=== PATIENT | male | born 1975 | race Caucasian/White ===

== ENCOUNTER 2016-05-03 18:53 | Emergency (ER) | payer OTHER ==
[2016-05-03 20:34] LABS: BASO % 0.3 % (0.0-2.0); EOS % 0.8 % (0.0-4.0); HEMATOCRIT 44.2 % (35.0-51.0); LYMPH # 1.9 K/uL (1.0-4.3); LYMPH % 32.9 % (20.0-40.0); MEAN CELL VOLUME 88.4 fL (80.0-94.0); MEAN CORPUSCULAR HEMOGLOBIN 28.9 pg (27.0-31.0); MEAN CORPUSCULAR HGB CONC 32.7 g/dL (33.0-37.0); MEAN PLATELET VOLUME 7.7 fL (7.2-11.7); MONO # 0.5 K/uL (0.0-0.8); MONO % 8.4 % (0.0-10.0); RED CELL DISTRIBUTION WIDTH 12.9 % (11.5-14.5); WHITE BLOOD COUNT 5.7 K/uL (4.8-10.8)
[2016-05-03 20:38] LABS: URINE BILIRUBIN NEGATIVE (NEGATIVE); URINE BLOOD NEGATIVE (NEGATIVE); URINE COLOR Yellow (YELLOW); URINE GLUCOSE (UA) NORMAL (Normal); URINE KETONE NEGATIVE (NEGATIVE); URINE LEUKOCYTE ESTERASE NEG Leu/uL (Negative); URINE PROTEIN NEGATIVE (NEGATIVE); URINE UROBILINOGEN NORMAL mg/dL (0.2-1.0)
[2016-05-03 20:39] LABS: CHLORIDE 97 mmol/L (98-107); POTASSIUM 3.7 mmol/L (3.6-5.2); SODIUM 139 mmol/L (132-148)
[2016-05-03 20:41] LABS: BILIRUBIN,TOTAL 0.3 mg/dL (0.2-1.3); GFR AFRICAN-AMERICAN > 60
[2016-05-03 20:42] LABS: ALB/GLOB RATIO 1.6 (1.0-2.1); ALKALINE PHOSPHATASE 98 U/L (38-126); ALT/SGPT 33 U/L (21-72); AST/SGOT 29 U/L (17-59); BLOOD UREA NITROGEN 13 mg/dL (9-20); CALCIUM 8.9 mg/dl (8.6-10.4); CARBON DIOXIDE 29 mmol/L (22-30); GLUCOSE,RANDOM 110 mg/dL (75-110); TOTAL PROTEIN 6.7 g/dL (6.3-8.3)
[2016-05-03 20:43] LABS: ALCOHOL SERUM < 10 mg/dl (0-10)
--- NOTE | 2016-05-04 03:53 | C.PDOC ---
Time Seen by Provider: 05/03/16 19:56 Chief Complaint (Nursing): Psychiatric Evaluation History Per: Patient History/Exam Limitations: clinical condition Onset/Duration Of Symptoms: Unknown Current Symptoms Are (Timing): Still Present Modifying Factor(s): None Severity: Moderate Associated Symptoms: Paranoia Additional History Per: Prior Records Past Medical History Reviewed: Historical Data, Nursing Documentation, Vital Signs Vital Signs: Last Vital Signs Temp 97.2 F L 05/04/16 06:18 Pulse 55 L 05/04/16 06:18 Resp 16 05/04/16 06:18 BP 105/62 05/04/16 06:18 Pulse Ox 98 05/04/16 06:18 - Medical History PMH: Schizophrenia (Paranoid) Family History: States: Unknown Family Hx - Social History Hx Tobacco Use: No Hx Alcohol Use: No Hx Substance Use: No - Immunization History Hx Tetanus Toxoid Vaccination: No Hx Influenza Vaccination: No Hx Pneumococcal Vaccination: No Review Of Systems Review Of Systems: ROS cannot be obtained secondary to pt's inabilty to answer questions. Physical Exam - Physical Exam Appears: Other (Pt is not answering questions appropriately. He points to his head. ) Skin: Normal Color, Warm, Dry, No Rash Head: Atraumatic, Normacephalic Eye(s): bilateral: PERRL Neck: Normal ROM, No Midline Cervical Tenderness, No Step Off Deformity, Supple Chest: Symmetrical, No Deformity Cardiovascular: Rhythm Regular Respiratory: Normal Breath Sounds, No Accessory Muscle Use Gastrointestinal/Abdominal: Soft, No Tenderness Back: No CVA Tenderness Extremity: Normal ROM, No Deformity Neurological/Psych: Inappropriate Response To Command, Other (Moving all extremities) ED Course And Treatment - Laboratory Results Result Diagrams: 05/03/16 20:28 05/03/16 20:28 Lab Interpretation: No Acute Changes ECG: Interpreted By Me, Viewed By Me ECG Rhythm: Sinus Bradycardia ECG Interpretation: No Acute Changes Rate From EC O2 Sat by Pulse Oximetry: 100 Pulse Ox Interpretation: Normal - Radiology CXR: Interpreted by Me, Viewed By Me CXR Interpretation: Yes: No Acute Disease - CT Scan/US CT head Other Rad Studies (CT/US): Read By Radiologist, Radiology Report Reviewed CT/US Interpretation: No CT evidence of acute intracranial abnormality. Progress Note: Pt is medically stable for psychiatric evaluation and/or admission. Disposition - Disposition Disposition Time: 07:00 Condition: STABLE - Clinical Impression Clinical Impression: Psychosis Physician Patient Turnover Patient Signed Over To: Erwin Montenegro Handoff Comments: to f/up psychiatric screening evaluation by [facility].
--- NOTE | 2016-05-04 08:38 | CT ---
PROCEDURE: CT HEAD WITHOUT CONTRAST. HISTORY: psych pt c/o about head. Headache? Pt not talking. COMPARISON: 11/06/2015 TECHNIQUE: Axial computed tomography images were obtained through the head/brain without intravenous contrast. Radiation dose: Total exam DLP = 9457.49 MGy-cm. FINDINGS: HEMORRHAGE: No intracranial hemorrhage. BRAIN: No mass effect or edema. No CT evidence of acute territorial infarct. No atrophy or chronic microvascular ischemic changes. VENTRICLES: Unremarkable. No hydrocephalus. Stable asymmetry. CALVARIUM: Unremarkable. PARANASAL SINUSES: Unremarkable as visualized. No significant inflammatory changes. MASTOID AIR CELLS: Unremarkable as visualized. No inflammatory changes. OTHER FINDINGS: None. IMPRESSION: No CT evidence of acute intracranial hemorrhage or acute territorial infarct. Acute infarction may be CT occult within first 24 hours. If a focal deficit persists, consider followup CT or MRI for further evaluation. Please note that this report is in general agreement with the preliminary report provided by Eleanor.
--- NOTE | 2016-05-04 09:01 | RAD ---
HISTORY: psych COMPARISON: 11/18/2015. FINDINGS: LUNGS: No active pulmonary disease. PLEURA: No significant pleural effusion identified, no pneumothorax apparent. CARDIOVASCULAR: Normal. OSSEOUS STRUCTURES: No significant abnormalities. VISUALIZED UPPER ABDOMEN: Normal. OTHER FINDINGS: None. IMPRESSION: No active disease.
--- NOTE | 2016-05-04 16:23 | PCM.PSYCH ---
Initial Psychiatric Evaluation - Initial Psychiatric Evaluation Type of Admission: Involuntary Legal Status: Capacity Chief Complaint (in patient's own words): i am crystal History of Present Illness and Precipitating Events: This is a 41 years old male, who lives with his mother and works at [employer] , came to the ED with auditory hallucinations, and disorganized behavior. As per the staff, patient was very disorganized and internally preoccupied. Patient was delusional, paranoid, psychotic and bizarre. He requested that he has headaches and he wants xray of his head, that's why he came to the hospital. During evaluation patient remains superficially cooperative but guarded about the details. He is a poor historian. Patient remains guarded, delusional, and internally preoccupied. He starts looking around suspiciously and at times starts smiling without any stimulus Spoke with the mother, Ms Li. As per the mother patient has a long history of schizophrenia and he was [place] [facility]. He stopped his medications almost 6 months ago and since then he is becoming increasingly disorganized and internally preoccupied. As per her, he is not eating, he is not drinking and he does not take care of his ADLs. He confines himself to his room, starts responding to internal stimuli and he starts talking to himself and laughing by himself. As per the mother, he is not suicidal and is not homicidal. But he needs to stay in the hospital to get treatment. Past medical history None reported Current Medications: Active Medications Generic Name Dose Route Start Last Admin Trade Name Freq PRN Reason Stop Dose Admin Benztropine Mesylate 1 mg 05/04/16 12:13 Cogentin IM Q6 PRN Allergy symptoms Benztropine Mesylate 2 mg 05/04/16 12:12 Cogentin PO Q6 PRN Extra Pyramidal Symptoms Clonazepam 1 mg 05/04/16 18:00 Klonopin PO BID SUDHEER Diphenhydramine HCl 50 mg 05/04/16 12:12 Benadryl PO Q6 PRN Extra Pyramidal Symptoms Haloperidol 5 mg 05/04/16 12:13 Haldol PO Q6 PRN Agitation Haloperidol Lactate 5 mg 05/04/16 12:12 Haldol IM Q8 PRN Moderate Agitation Lorazepam 1 mg 05/04/16 12:12 Ativan PO Q6 PRN Anxiety Past Psychiatric History - Past Psychiatric History Previous Treatment History: Inpatient Pertinent Medical Hx (Current Medical&Sleep Prob, Allergies): Allergies Allergy/AdvReac Type Severity Reaction Status Date / Time No Known Allergies Allergy Verified 11/18/15 19:28 Oxcarbazepine [Trileptal] 150 mg PO BID 05/28/13 traZODone [Desyrel] 50 mg PO DAILY 05/28/13 Benztropine [Benztropine Mesylate] 1 mg PO 11/06/15 risperiDONE [RisperDAL] 3 mg PO HS 11/18/15 Review of Systems - Review of Systems All systems: reviewed and no additional remarkable complaints except - Psychiatric Psychiatric: Anxiety, Hallucinations, Paranoia Mental Status Examination - Personal Presentation Personal Presentation: Looks stated age - Affect Affect: Constricted - Reliability in Providing Information Reliability in Providing Information: Poor, due to alteration in thoughts - Speech Speech: Disorganized - Mood Mood: Anxious - Formal Thought Process Formal Thought Process: Hallucinations, Delusions, Paranoia, Loosening of associations - Hallucinations/Delusions Hallucinations: Auditory Delusions: Persecution - Obsessions/Compulsions Obsessions: No Compulsions: No - Cognitive Functions Orientation: Person, Place, Situation, Time Sensorium: Alert Attention/Concentration: Easily distracted Abstract Thinking: [place] Estimate of Intelligence: Below average Judgement: Imparied, as evidence by: Poor judgement, Imparied, as evidence by: Lack of insight into illness - Risk Risk: Diminished functioning - Strength & Assets Inventory Strength & Assets Inventory: Family support DSM 5 DX - DSM 5 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 - Smoking Cessation Smoking Cessation Initiated: No
[2016-05-04 19:07] VITALS: BP 117/74; PULSE 68; RESP 18; TEMP 97.6; O2SAT 100
--- NOTE | 2016-05-06 06:39 | CARD ---
APPROVED REPORT EKG Measurement Heart [id number] <Conclusion> Sinus bradycardia Otherwise normal ECG
== END 2016-05-04 19:50 | disposition short-term general hospital (02) ==
LOC: C.ER 18:53
DX: F20.0 Paranoid schizophrenia (principal)